=== PATIENT | male | born 1970 | race Caucasian/White ===

== ENCOUNTER 2023-11-08 21:55 | Inpatient (IN) | payer MEDICAID ==
[~2023-11-08] VITALS: Ht 190.5 cm; Wt 106.8 kg
[2023-11-09] VITALS (8 sets, daily range): BP systolic 108–126; BP diastolic 58–91; PULSE 47–78; RESP 16–52; TEMP 97.5–98.6; O2SAT 96–99
[2023-11-09] MEDS: normal saline 1000ml 1,000 ML IV ONE (00:57)
[2023-11-09] MEDS ORDERED: magnesium Cl slow-release 64mg tablet PO PRN (01:45)
[2023-11-09] MEDS ORDERED: magnesium hydroxide 30ml (MOM) UD suspension PO PRN (01:45)
[2023-11-09] MEDS ORDERED: magnesium 2GM in 50ml NS 50 ML IV PRN (01:45)
[2023-11-09] MEDS ORDERED: morphine 2 MG/ML inj. syringe IV PRN ×2 (01:45)
[2023-11-09] MEDS ORDERED: potassium Cl 20 mEq SR tablet PO PRN ×2 (01:45)
[2023-11-09] MEDS: normal saline 1000ml 1,000 ML IV SCH (01:45)
[2023-11-09] MEDS ORDERED: acetaminophen 325mg tablet PO PRN (01:45)
[2023-11-09] MEDS ORDERED: potassium Cl 40MEQ/1/2NS 520ml 520 ML IV PRN (01:45)
[2023-11-09] MEDS ORDERED: magnesium 4gm in 100ml NS 100 ML IV PRN (01:45)
[2023-11-09] MEDS ORDERED: ondansetron/PF 4mg/2ml inj IV PRN (01:45)
[2023-11-09] MEDS ORDERED: mag hydrox/Alum hydrox/simeth 30ml oral suspension PO PRN (01:45)
[2023-11-09] MEDS ORDERED: NO HOME MEDS (03:10)
[2023-11-09] MEDS: VANCOMYCIN 1,500MG in normal saline IV soln 300 ML IV ONE (03:18)
[2023-11-09 03:53] LABS: ANION GAP 7 (8-16); BLOOD UREA NITROGEN 15 MG/DL (7-18); CALCIUM 8.6 MG/DL (8.5-10.1); CHLORIDE 105 MMOL/L (99-107); CREATININE 0.88 MG/DL (0.60-1.10); GLUCOSE 97 MG/DL (70-104); POTASSIUM 4.1 MMOL/L (3.5-5.1); SODIUM 139 MMOL/L (135-145); TOTAL CARBON DIOXIDE 27.3 MMOL/L (24-32); eCRCL 117 ML/MIN; eGFR > 90 ML/MIN
[2023-11-09] MEDS: nicotine 14mg patch - 24hr TD ONE (04:06)
[2023-11-09 04:36] LABS: MEAN PLATELET VOLUME 8.6 FL (7.4-10.4)
[2023-11-09 04:38] LABS: BASOPHILS % (AUTO) 0.7 % (0-1); EOSINOPHILS # (AUTO) 0.3 X10'3 (0-0.9); EOSINOPHILS % (AUTO) 3.9 % (0-6); HEMATOCRIT 47.7 % (42.0-52.0); LYMPHOCYTES # (AUTO) 1.9 X10'3 (1.1-4.8); LYMPHOCYTES % (AUTO) 28.4 % (21-51); MEAN CORPUSCULAR HEMOGLOBIN 30.2 PG (27.0-31.0); MEAN CORPUSCULAR HGB CONC 33.6 g/dL (33.0-36.5); MEAN CORPUSCULAR VOLUME 90.1 FL (78-98); MONOCYTES # (AUTO) 0.9 X10'3 (0-0.9); MONOCYTES % (AUTO) 13.5 % (2-12); NEUTROPHILS # (AUTO) 3.6 X10'3 (1.8-7.7); NEUTROPHILS % (AUTO) 53.5 % (42-75); PLATELET COUNT 284 X10'3 (140-440); RED BLOOD COUNT 5.29 X10'6 (4.70-6.10); RED CELL DISTRIBUTION WIDTH 14.1 % (11.5-14.5); WHITE BLOOD COUNT 6.7 X10'3 (4.5-11.0)
[2023-11-09] MEDS: K and/or MAG REPLACEMENT MC SCH (08:00)
[2023-11-09] MEDS ORDERED: DOXYCYCLINE 100MG CAPSULE PO SCH (08:00)
[2023-11-09] MEDS: enoxaparin 40mg/0.4ml syringe SUBCUT SCH (08:00)
[2023-11-09] MEDS: vancomycin/NS 1 GM ADD-VANTAGE 250 ML IV SCH (13:17)
[2023-11-10] MEDS ORDERED: VANCOMYCIN LEVEL IV ONE (04:30)
== END 2023-11-09 20:41 | disposition left against medical advice (07) | DRG 247 ==
LOC: ER 21:56 → ED HOLD 11-09 02:33 → ORTHO 4S 11-09 03:25
PROVIDERS: ADMIT Surgery Surgical Critical Care; ATTEND Internal Medicine
PROC: 0D9670Z Drainage of Stomach with Drainage Device, Via Natural or Artificial Opening (ICD-10-PCS; principal; 2023-11-09)
DX: K56.609 Unspecified intestinal obstruction, unspecified as to partial versus complete obstruction (principal); F17.210 Nicotine dependence, cigarettes, uncomplicated; F41.9 Anxiety disorder, unspecified; Z53.29 Procedure and treatment not carried out because of patient's decision for other reasons; J45.909 Unspecified asthma, uncomplicated; Z90.49 Acquired absence of other specified parts of digestive tract; Z71.6 Tobacco abuse counseling
CPT/HCPCS: 36415; 74018; 80048; 85025; 87081; 96360; 99285; G0378; J3370; J7030; J7040